=== PATIENT | female | born 1955 | race Caucasian/White ===

== ENCOUNTER 2017-04-26 14:52 | Outpatient (CLI) | payer BC | END 2017-04-26 14:53 | disposition home or self-care (01) | LOC: BICRAD 14:52 | PROVIDERS: ATTEND Family Medicine | DX: R05 Cough (principal); R06.2 Wheezing; J90 Pleural effusion, not elsewhere classified | CPT/HCPCS: 71020 ==

== ENCOUNTER 2017-05-09 01:28 | Outpatient (CLI) | payer OTHER | END 2017-05-09 01:29 | disposition home or self-care (01) | LOC: BICRAD 01:28 | PROVIDERS: ATTEND Family Medicine | DX: R06.02 Shortness of breath (principal) | CPT/HCPCS: 71020 ==

== ENCOUNTER 2020-09-25 14:41 | Outpatient (CLI) | payer BC | END 2020-09-25 14:42 | disposition home or self-care (01) | LOC: BICMAMMO 14:41 | PROVIDERS: ATTEND Obstetrics & Gynecology | DX: Z13.820 Encounter for screening for osteoporosis (principal); M81.0 Age-related osteoporosis without current pathological fracture; M85.851 Other specified disorders of bone density and structure, right thigh | CPT/HCPCS: 77080 ==